=== PATIENT | male | born 1970 | race Caucasian/White ===

== ENCOUNTER 2018-04-27 05:47 | Emergency (ER) | payer OTHER ==
[~2018-04-27] VITALS: Ht 175.3 cm; Wt 81.7 kg
[2018-04-27 05:56] VITALS: BP 166/92
[2018-04-27] MEDS ORDERED: PERIDEX 0.12%473 M1 SWISH&SPIT (06:10)
[2018-04-27] MEDS ORDERED: FLAGYL500 MG PO (06:10)
[2018-04-27] MEDS ORDERED: HYDROCODONE-AP1 EAC6 PO (06:10)
== END 2018-04-27 06:16 | disposition home or self-care (01) ==
LOC: M.ERS 05:47
DX: K08.89 Other specified disorders of teeth and supporting structures (principal); F17.210 Nicotine dependence, cigarettes, uncomplicated

== ENCOUNTER 2018-06-19 18:19 | Emergency (ER) | payer OTHER ==
[~2018-06-19] VITALS: Ht 175.3 cm; Wt 90.7 kg
[~2018-06-19 18:19] MED LIST: FLAGYL500 MG PO; HYDROCODONE-AP1 EAC6 PO; PERIDEX 0.12%473 M1 SWISH&SPIT
[2018-06-19] MEDS ORDERED: ASPIR 8181 MG PO (18:38)
[2018-06-19] MEDS ORDERED: TYLENOL EXTRA500 MG PO (18:38)
[2018-06-19 19:27] VITALS: BP 154/98
== END 2018-06-19 19:30 | disposition home or self-care (01) ==
LOC: M.ERS 18:19
DX: L29.8 Other pruritus (principal); F17.210 Nicotine dependence, cigarettes, uncomplicated; Z90.49 Acquired absence of other specified parts of digestive tract; W57.XXXA Bitten or stung by nonvenomous insect and other nonvenomous arthropods, initial encounter; Y93.89 Activity, other specified; Y92.89 Other specified places as the place of occurrence of the external cause; Y99.8 Other external cause status

== ENCOUNTER 2018-09-21 12:09 | Emergency (ER) | payer OTHER ==
[~2018-09-21] VITALS: Ht 175.3 cm; Wt 90.7 kg
[~2018-09-21 12:09] MED LIST changes: +ASPIR 8181 MG PO; +TYLENOL EXTRA500 MG PO
[2018-09-21 12:26] LABS: ABSOLUTE BASOPHILS 0.1 thou/uL (0.0-0.2); ABSOLUTE EOSINOPHILS 0.3 thou/uL (0.0-0.7); ABSOLUTE LYMPHOCYTES 2.1 thou/uL (0.8-5.3); ABSOLUTE MONOCYTES 0.4 thou/uL (0.0-1.2); ABSOLUTE NEUTROPHILS 3.9 thou/uL (1.6-8.1); BASOPHILS 1.4 %; EOSINOPHILS 3.7 %; HEMATOCRIT 46.7 % (42.0-52.0); HEMOGLOBIN 15.6 gm/dL (14.0-18.0); LYMPHOCYTES 30.4 %; MCH 29.4 pg (26.0-34.0); MCHC 33.4 g/dL (28.0-37.0); MONOCYTES 6.2 %; MPV 8.1 fl. (7.2-11.1); NUCLEATED RBCS 0 /100WBC; PLATELET COUNT* 231 thou/uL (150-400); POLYS 58.3 %; RBC 5.31 mil/uL (4.50-6.00); RDW-CV 14.5 % (10.5-14.5); WBC 6.7 thou/uL (4.0-11.0)
[2018-09-21 12:37] LABS: ANION GAP 6 mmol/L (7-16); BUN 19 mg/dL (7-18); CHLORIDE 105 mmol/L (98-107); CO2 29 mmol/L (21-32); CREATININE 0.9 mg/dL (0.6-1.3); GLUCOSE 79 mg/dL (70-99); POTASSIUM 4.2 mmol/L (3.5-5.1); SODIUM 140 mmol/L (136-145)
[2018-09-21 12:48] LABS: ALBUMIN 3.5 g/dL (3.4-5.0); ALKALINE PHOSPHATASE 124 U/L (46-116); LIPASE 168 U/L (73-393); NT-PRO BRAIN NAT PEPTIDE 52 pg/mL (<300); SGOT 16 U/L (15-37); SGPT 26 U/L (30-65); TOTAL BILIRUBIN 0.1 mg/dL (<0.1-1.0); TOTAL PROTEIN 7.2 g/dL (6.4-8.2); TROPONIN-I LEVEL <0.06 ng/mL (<0.06)
[2018-09-21] MEDS ORDERED: KEFLEX500 M1 PO (13:26)
[2018-09-21 14:14] VITALS: BP 126/75
--- NOTE | 2018-09-21 16:02 | EKG ---
[place] [address] ELECTROCARDIOGRAM REPORT Name: LAURA GANDHI [id number] Admission: 09/21/18 Attend Phys: Discharge: 09/21/18 Date of : 66 Report #: [id number] THIS REPORT FOR: //name// [facility] ED Test Date: 2018-09-21 Test Time: 12:15:49 Pat Name: LAURA GANDHI Department: Room: Gender: M Cherry Pitter: Susana KIM : 1970 Requested By: Cary Rudolph Order Number: [id number] MD: Janes Naidu Measurements Intervals [place] Rate: 75 P: 43 MT: 153 QRS: 36 QRSD: 100 T: 44 QT: 397 QTc: 444 Interpretive Statements Sinus rhythm Probable left ventricular hypertrophy No previous ECG available for comparison Electronically Signed On 09-21-2018 16:02:23 WEB DEVELOPER PROGRAMMER by Janes Naidu [email or web address] <ELECTRONICALLY SIGNED> By: Janes Naidu MD, [facility] 09/21/18 1602 1215 1215 Janes Naidu MD, FACC /EPI
== END 2018-09-21 14:15 | disposition home or self-care (01) ==
LOC: M.ERS 12:09
PROVIDERS: Physician Assistant
DX: J18.9 Pneumonia, unspecified organism (principal); I50.9 Heart failure, unspecified; Z90.49 Acquired absence of other specified parts of digestive tract; F17.210 Nicotine dependence, cigarettes, uncomplicated